=== PATIENT | female | born 1955 | race Caucasian/White ===

== ENCOUNTER 2018-01-29 15:24 | Inpatient (IN) | payer SELFPAY ==
[~2018-01-29] VITALS: Ht 157.5 cm; Wt 59.6 kg
[2018-01-29 18:09] LABS: HEMATOCRIT 38.2 % (36.0-46.0); MCH 32.6 PG (29.0-34.0); MCV 95.7 FL (83-99); RBC DIS.WIDTH-CV 13.2 % (11.8-14.6); RBC DIS.WIDTH-SD 46.6 % (39-53); RED BLOOD COUNT 3.99 M/uL (3.80-5.20); WHITE BLOOD COUNT 12.2 K/uL (4.1-10.2)
[2018-01-29 18:25] LABS: PTT 29.1 SEC (25-37)
[2018-01-29 18:27] LABS: CHLORIDE 112 mEq/L (99-109); SODIUM 145 mEq/L (136-147)
[2018-01-29 18:29] LABS: GLUCOSE 97 mg/dL (70-99)
[2018-01-29 18:33] LABS: CREATININE 0.8 mg/dL (0.6-1.3); GFR ESTIMATE (CALCULATED) > 59 mL/min/
[2018-01-29 18:34] LABS: UREA NITROGEN (BUN) 31 mg/dL (9-23)
[2018-01-29 19:08] LABS: PLAT.SUFFICIENCY ADEQUATE; PLATELET COUNT 220 K/uL (156-360)
[2018-01-30 00:49] VITALS: BP 158/76
[2018-01-30 03:16] VITALS: BP 133/62
[2018-01-30 07:33] VITALS: BP 108/61
[2018-01-30 11:11] VITALS: BP 107/53
[2018-01-30 15:21] VITALS: BP 123/58
[2018-01-30 23:20] VITALS: BP 111/56
[2018-01-31 07:26] VITALS: BP 129/59
[2018-01-31 16:24] VITALS: BP 121/66
[2018-01-31 23:29] VITALS: BP 122/56
[2018-02-01 08:00] VITALS: BP 136/62
[2018-02-01 17:14] VITALS: BP 129/76
[2018-02-01 23:17] VITALS: BP 110/55
[2018-02-02 08:33] VITALS: BP 132/60
[2018-02-02 16:43] VITALS: BP 119/58
[2018-02-02 19:25] VITALS: BP 110/47
[2018-02-02 23:52] VITALS: BP 103/57
[2018-02-03 03:32] VITALS: BP 113/68
[2018-02-03 06:19] LABS: CHLORIDE 107 MEQ/L (99-109); CREATININE 0.9 MG/DL (0.6-1.3); GFR ESTIMATE (CALCULATED) > 59 mL/min/; GLUCOSE 106 mg/dL (70-99); POTASSIUM 4.4 MEQ/L (3.7-5.4); SODIUM 140 MEQ/L (136-147); UREA NITROGEN (BUN) 20 mg/dL (9-23)
[2018-02-03 07:37] VITALS: BP 106/53
[2018-02-03 08:16] LABS: HEMATOCRIT 39.2 % (36.0-46.0); HEMOGLOBIN 13.3 G/DL (11.9-15.5); MCH 32.3 PG (29.0-34.0); MCHC 33.9 G/DL (30.0-36.0); MCV 95.1 FL (83-99); PLATELET COUNT 236 K/uL (156-360); RED BLOOD COUNT 4.12 M/uL (3.80-5.20); WHITE BLOOD COUNT 6.9 K/uL (4.1-10.2)
[2018-02-03 09:14] LABS: HEMATOCRIT 39.3 % (36.0-46.0); HEMOGLOBIN 13.2 G/DL (11.9-15.5); MCH 31.7 PG (29.0-34.0); MCHC 33.6 G/DL (30.0-36.0); MCV 94.5 FL (83-99); PLATELET COUNT 234 K/uL (156-360); RBC DIS.WIDTH-CV 12.9 % (11.8-14.6); RBC DIS.WIDTH-SD 44.2 % (39-53); RED BLOOD COUNT 4.16 M/uL (3.80-5.20); WHITE BLOOD COUNT 7.1 K/uL (4.1-10.2)
[2018-02-03 11:45] VITALS: BP 108/52
[2018-02-03 15:24] VITALS: BP 106/55
[2018-02-03] MEDS ORDERED: MOTRIN600 MG PO (15:35)
== END 2018-02-03 17:53 | disposition home or self-care (01) | DRG 201 ==
LOC: EME 15:24 → EDOF 18:47 → 3EAST 18:47 → ENRESERV 18:57 → 3EAST 01-30 00:43
PROVIDERS: Family Medicine; Internal Medicine; Surgery
PROC: 0W9930Z Drainage of Right Pleural Cavity with Drainage Device, Percutaneous Approach (ICD-10-PCS; principal; 2018-01-29)
DX: J95.811 Postprocedural pneumothorax (principal); M75.52 Bursitis of left shoulder; F41.9 Anxiety disorder, unspecified; F32.9 Major depressive disorder, single episode, unspecified; F17.210 Nicotine dependence, cigarettes, uncomplicated; Z86.73 Personal history of transient ischemic attack (TIA), and cerebral infarction without residual deficits
CPT/HCPCS: 71045; 71046; 71260; 80048; 85027; 85610; 85730; 94799; 99281; 99285; J1650; J2270; J7042; J7120